=== PATIENT | female | born 1970 | race Caucasian/White ===

== ENCOUNTER 2018-11-14 16:12 | Emergency (ER) | payer SELFPAY ==
[~2018-11-14] VITALS: Ht 152.4 cm; Wt 63.5 kg
[~2018-11-14 16:12] MED LIST: AMBIEN5 MG PO; KEPPRA500 MG PO; LAMOTRIGINE100 MG PO; NORCO 7.5-3251 EACH PO; PROZAC40 MG PO; XANAX0.25 MG PO
--- OUTSIDE RECORDS SUMMARY | 2018-11-14 16:16 | XMS REPORT | Clinical Summary ---
Author Author [facility] Organization [facility] Address Unknown Phone Unavailable Care Team Providers Care Cosmetics Presser Name Role Phone Dacia George PCP Allergies Not on File Medications End Date Status Medication Sig Dispensed Refills Start Date Active lamoTRIgine (LAMICTAL) 25 Take 2 0 mg tablet tablets by 8 mouth 2 times daily. Active ALPRAZolam (XANAX) 1 mg TK / TO 1 T 5 tablet PO TID PRA 8 Active ibuprofen (MOTRIN) 400 mg Take 1 tablet 60 tablet 0 tabletIndications: Sprain by mouth 8 of left ankle, every 12 unspecified ligament, hours as initial encounter needed for Pain (take with food). Active Leg Brace (RAJ ANKLE by 1 Each 0 BRACE) MiscIndications: Misc.(Non-Chito 8 Sprain of left ankle, g; Combo unspecified ligament, Route) route initial encounter Ankle brace to help stabilize left ankle. Active ergocalciferol (VITAMIN Take 1 12 capsule 0 D2) 50,000 unit capsule by 8 capsuleIndications: mouth weekly. Fracture follow-up Active calcium (CALCIUM 500) 500 Take 1 tablet 60 tablet 1 mg calcium (1,250 mg) by mouth 2 8 tabletIndications: times daily. Fracture follow-up Active FLUoxetine (PROZAC) 20 mg Take 1 30 capsule 0 capsuleIndications: capsule by 9 Depression, unspecified mouth daily. depression type Active zolpidem (AMBIEN) 10 mg Take 1 tablet 30 tablet 0 TabIndications: by mouth 9 Depression, unspecified nightly at depression type bedtime as needed for Insomnia. 10/09/2018 Discontinued traZODone (DESYREL) 50 mg TAKE 1 TO 2 5 tablet TABLET PO QHS 7 10/09/2018 Discontinued zolpidem (AMBIEN) 10 mg TK 2 TS PO HS 5 Tab PRF INSOMNIA 8 Active Problems Problem Noted Date Fracture follow-up 03/19/2018 Follow up 02/04/2018 Closed nondisplaced fracture of lateral malleolus of left fibula 01/26/2018 Seizure 10/01/2017 Anxiety 10/01/2017 Resolved Problems Problem Noted Date Resolved Date Acute left ankle pain 01/23/2018 01/26/2018 Encounters Care Team Description Date Type Specialty Rafael Armas MD Depression, unspecified depression type (Primary Dx) 10/09/2018 Office Visit Psychiatry 10/09/2018 Travel Dacia George DO Chronic pain of left ankle 07/27/2018 Hospital Radiology Encounter Arjun Cornelius MD McAlister, Wade P, MD Closed nondisplaced fracture of lateral malleolus of left fibula with routine healing, subsequent encounter (Primary Dx); Chronic pain of left ankle 07/27/2018 Office Visit Orthopedics 07/27/2018 Travel Arjun Cornelius MD Martin, Stacey K, MD Fracture follow-up (Primary Dx) 05/18/2018 Office Visit Orthopedics Arjun Cornelius MD Fracture follow-up 05/18/2018 Hospital Radiology Encounter Arjun Cornelius MD McAlister, Wade P, MD Mascarenhas, Randhir F, MD Closed nondisplaced fracture of lateral malleolus of left fibula with delayed healing, subsequent encounter (Primary Dx); Fracture follow-up 03/23/2018 Office Visit OrthopedicDacia Mohan DO Fracture follow-up 03/23/2018 Hospital Radiology Encounter Arjun Cornelius MD Mascarenhas, Randhir F, MD Closed displaced fracture of lateral malleolus of left fibula with routine healing, subsequent encounter (Primary Dx) 02/09/2018 Office Visit OrthopedicDacia Mohan DO Follow up 02/09/2018 Hospital Radiology Encounter Arjun Cornelius MD Closed nondisplaced fracture of lateral malleolus of left fibula, initial encounter (Primary Dx) 01/26/2018 Office Visit Orthopedics Arjun Cornelius MD Acute left ankle pain 01/26/2018 Hospital Radiology Encounter Henrik Chiang MD 01/05/2018 Ancillary Radiology Procedure Dacia George DO Shah, Nihita, MD Sprain of left ankle, unspecified ligament, initial encounter (Primary Dx) 01/05/2018 Office Visit Family Practice Henrki Chiang MD Closed fracture of distal end of left fibula, unspecified fracture morphology, initial encounter (Primary Dx) 01/05/2018 Orders Only Family Practice Marah Castro RN 12/31/2017 Nurse Triage after 11/13/2017 Immunizations Name Dates Previously Given Next Due Influenza <Unspecified> 07/01/2017 Tdap (Tetanus Toxoid, 10/01/2017 (Deferred: Patient already had this Reduced Diphtheria Toxoid immunization - Patient states she received the And Acellular Pertussis, vaccine about 3 years ago ) Absorbed) Family History Medical History Relation Name Comments No Known Problems Maternal Grandfather Cancer Maternal Grandmother Heart Maternal Grandmother No Known Problems Paternal Grandfather No Known Problems Paternal Grandmother Relation Name Status Comments Father Alive Maternal Aunt Alive Maternal Grandfather Maternal Grandmother Mother Alive Paternal Grandfather Paternal Grandmother Paternal Uncle Alive Sister Alive Son Alive Social History Date Tobacco Use Types Packs/Day Years Used Never Smoker Smokeless Tobacco: Never Used Tobacco Cessation: Counseling Given: No Alcohol Use Drinks/Week oz/Week Comments Yes socially Sex Assigned at Date Recorded Not on file Industry Job Start Date Occupation Not on file Not on file Not on file Travel End Travel History Travel Start No recent travel history available. Last Filed Vital Signs Time Taken Vital Sign Reading 10/09/2018 10:47 AM PERSONAL CARE ASSISTANT Blood Pressure 130/82 10/09/2018 10:47 AM PERSONAL CARE ASSISTANT Pulse 98 10/09/2018 10:47 AM PERSONAL CARE ASSISTANT Temperature 36.6 C (97.9 F) 10/09/2018 10:47 AM PERSONAL CARE ASSISTANT Respiratory Rate 18 - Oxygen Saturation - - Inhaled Oxygen - Concentration 10/09/2018 10:47 AM PERSONAL CARE ASSISTANT Weight 65 kg (143 lb 6.4 oz) 10/09/2018 10:47 AM PERSONAL CARE ASSISTANT Height 152.4 cm (5') 10/09/2018 10:47 AM PERSONAL CARE ASSISTANT Body Mass Index 28.01 Plan of Treatment Health Maintenance Due Date Last Done Comments Cervical Cancer Scrn (3 1989 Yrs) Breast Cancer Scrn 2008 (Yearly) IMM Influenza Seasonal 05/25/2018 07/01/2017 Oct to October (>/=19 yrs) Colorectal Cancer Scrn 2018 Annual (FIT/FOBT) Age 50 to 75 Procedures Comments Procedure Name Priority Date/Time Associated Diagnosis XRAY ANKLE 3 VIEW MIN Routine 07/27/2018 Chronic pain of left 4:25 PM PERSONAL CARE ASSISTANT ankle XRAY ANKLE 3 VIEWS - Routine 05/18/2018 Fracture follow-up ROUTINE 12:33 PM CDT XRAY ANKLE 3 VIEW MIN Routine 03/23/2018 Fracture follow-up 11:17 AM CDT XRAY ANKLE 3 VIEWS - Routine 02/09/2018 Follow up ROUTINE 3:09 PM CDT XRAY TIBIA AND FIBULA 2 Routine 01/26/2018 Acute left ankle pain VIEWS 10:49 AM CDT XRAY ANKLE 3 VIEW MIN Routine 01/26/2018 Acute left ankle pain 10:49 AM CDT XRAY TIBIA AND FIBULA 2 STAT 01/05/2018 Sprain of left ankle, VIEWS 2:28 PM CDT unspecified ligament, initial encounter XRAY FOOT 3 VIEWS MIN STAT 01/05/2018 Sprain of left ankle, 2:28 PM CDT unspecified ligament, initial encounter XRAY ANKLE 3 VIEW MIN STAT 01/05/2018 Sprain of left ankle, 2:28 PM CDT unspecified ligament, initial encounter TSH Routine 11/28/2017 Preventative health care 3:59 PM CDT LIPID PROFILE Routine 11/28/2017 Preventative health care 3:59 PM CDT HEMOGLOBIN A1C Routine 11/28/2017 Preventative health care 3:59 PM CDT COMPREHENSIVE METABOLIC Routine 11/28/2017 Preventative health care PANEL(DBIL NOT INCLUDED) 3:59 PM CDT CBC/DIFF Routine 11/28/2017 Preventative health care 3:59 PM CDT after 11/13/2017 Results * XRAY ANKLE 3 VIEW MIN (07/27/2018 4:25 PM PERSONAL CARE ASSISTANT) Only the most recent of 4 results within the time period is included. Impressions Performed At IMPRESSION: SMS Further healing of the fracture of the distal fibula when compared with a study done on 05/18/2018 Signed By: Adonis Clements MD, 07/28/2018 7:48 AM Narrative Performed At EXAM: LEFT ANKLE 3 VIEWS [facility] DATE: 07/27/2018 4:21 PM INDICATION: fracture. Chronic pain of left ankle COMPARISON: 05/18/2018 TECHNIQUE: AP, OBLIQUE AND LATERAL VIEWS DISCUSSION: The fracture line involving the distal fibular metaphysis is somewhat less evident when compared with a study study done on 05/18/2018. This would indicate some interval healing. The fracture line however still identified without displacement of fractured segments. The ankle mortise is well maintained. Procedure Note Interface, Rad/Mammog In - 07/28/2018 7:53 AM PERSONAL CARE ASSISTANT EXAM: LEFT ANKLE 3 VIEWS DATE: 07/27/2018 4:21 PM INDICATION: fracture. Chronic pain of left ankle COMPARISON: 05/18/2018 TECHNIQUE: AP, OBLIQUE AND LATERAL VIEWS DISCUSSION: The fracture line involving the distal fibular metaphysis is somewhat less evident when compared with a study study done on 05/18/2018. This would indicate some interval healing. The fracture line however still identified without displacement of fractured segments. The ankle mortise is well maintained. IMPRESSION IMPRESSION: Further healing of the fracture of the distal fibula when compared with a study done on 05/18/2018 Signed By: Adonis Clements MD, 07/28/2018 7:48 AM Performing Organization Address City/State/Zipcode Phone Number SMS * XRAY ANKLE 3 VIEWS - ROUTINE (05/18/2018 12:33 PM CDT) Only the most recent of 2 results within the time period is included. Impressions Performed At IMPRESSION:Continued healing and remodeling at the minimally displaced SMS left distal fibular fracture. No new findings Signed By: Sanhdya Hicks MD, 05/18/2018 3:20 PM Narrative Performed At EXAM: XR LEFT ANKLE 3 VIEWS [facility] DATE:05/18/2018 12:34 PM INDICATION: fracture. Fracture follow-up COMPARISON: 02/09/2018 TECHNIQUE:AP, lateral and oblique ankle radiographs DISCUSSION: There has been continued interim healing and remodeling at the Posada B left distal fibular fracture, with the fracture lines remaining evident. The ankle mortise is congruent. Tibiotalar osteophyte formation is most evident anteriorly. No new or superimposed bony abnormality is identified. No soft tissue abnormality is identified. Procedure Note Mario Oconnor/Umuog In - 05/18/2018 3:26 PM CDT EXAM: XR LEFT ANKLE 3 VIEWS DATE: 05/18/2018 12:34 PM INDICATION: fracture. Fracture follow-up COMPARISON: 02/09/2018 TECHNIQUE: AP, lateral and oblique ankle radiographs DISCUSSION: There has been continued interim healing and remodeling at the Posada B left distal fibular fracture, with the fracture lines remaining evident. The ankle mortise is congruent. Tibiotalar osteophyte formation is most evident anteriorly. No new or superimposed bony abnormality is identified. No soft tissue abnormality is identified. IMPRESSION IMPRESSION: Continued healing and remodeling at the minimally displaced left distal fibular fracture. No new findings Signed By: Sandhya Hicks MD, 05/18/2018 3:20 PM Performing Organization Address City/State/Zipcout Phone Number SMS * XRAY TIBIA AND FIBULA 2 VIEWS (01/26/2018 10:49 AM CDT) Only the most recent of 2 results within the time period is included. Impressions Performed At IMPRESSION: SMS Maintained alignment of Posdaa B medial malleolar fracture within the splint. Signed By: Adriel Mares MD, 01/26/2018 12:51 PM Narrative Performed At EXAM: XR LEFT TIBIA-FIBULA 2 VIEWS SMS EXAM: XR LEFT ANKLE 3 VIEWS DATE: 01/26/2018 10:49 AM INDICATION: PAIN COMPARISON: Radiographs dated 01/05/2018. TECHNIQUE: 2 views of the tibia-fibula, 3 views of the ankle FINDINGS: Tibia-fibula: No acute fracture or malalignment is identified. Remote appearing small bone fragment along the medial tibial spike. No soft tissue abnormality is identified. Ankle: Maintained alignment of Posada B lateral malleolus fracture, seen within the splint. No significant callus formation identified. The ankle mortise is congruent. Mild soft tissue swelling Procedure Note Mario Oconnor/Umuog In - 01/26/2018 12:56 PM CDT EXAM: XR LEFT TIBIA-FIBULA 2 VIEWS EXAM: XR LEFT ANKLE 3 VIEWS DATE: 01/26/2018 10:49 AM INDICATION: PAIN COMPARISON: Radiographs dated 01/05/2018. TECHNIQUE: 2 views of the tibia-fibula, 3 views of the ankle FINDINGS: Tibia-fibula: No acute fracture or malalignment is identified. Remote appearing small bone fragment along the medial tibial spike. No soft tissue abnormality is identified. Ankle: Maintained alignment of Posada B lateral malleolus fracture, seen within the splint. No significant callus formation identified. The ankle mortise is congruent. Mild soft tissue swelling IMPRESSION IMPRESSION: Maintained alignment of Posada B medial malleolar fracture within the splint. Signed By: Adriel Mares MD, 01/26/2018 12:51 PM Performing Organization Address City/State/Zipcode Phone Number SMS * XRAY FOOT 3 VIEWS MIN (01/05/2018 2:28 PM CDT) Impressions Performed At IMPRESSION: SMS 1.Acute obliquely oriented fracture through the distal fibula with extension through the distal tibial/fibular joint. 2.Ankle mortise is intact. 3.Age-indeterminate fracture of the medial intercondylar eminence. Lack of associated fluid suggests nonacute injury. 4. Moderate soft tissue swelling about the ankle Dictated By: Woody Moreira MD, 01/05/2018 2:48 PM I have reviewed the study and agree with the findings in this report. Signed By: Irving Loja DO, 01/05/2018 4:10 PM Narrative Performed At EXAM: Left ankle, tibia/fibula and foot series [facility] TECHNIQUE: AP, Lateral and Oblique views of the ankle and foot. AP and lateral views of the tibia/fibula (8 total images provided) HISTORY:left ankle sprain and swelling 3 days ago - twisting injury, has old h/o fracture in the foot 3 yrs ago COMPARISON: None DISCUSSION: Acute obliquely oriented fracture through the distal fibula with extension through the lateral malleolus and likely the tibiotalar joint. No widening of the medial or lateral clear space. Fragmentation of the medial intercondylar eminence without significant swelling. Os peroneum. The remaining osseous structures of the foot are intact The remaining joint spaces are well maintained without osseous erosion. Mild soft tissue swelling about the ankle Procedure Note Interface, Rad/Mammog In - 01/05/2018 4:15 PM CDT EXAM: Left ankle, tibia/fibula and foot series TECHNIQUE: AP, Lateral and Oblique views of the ankle and foot. AP and lateral views of the tibia/fibula (8 total images provided) HISTORY: left ankle sprain and swelling 3 days ago - twisting injury, has old h/o fracture in the foot 3 yrs ago COMPARISON: None DISCUSSION: Acute obliquely oriented fracture through the distal fibula with extension through the lateral malleolus and likely the tibiotalar joint. No widening of the medial or lateral clear space. Fragmentation of the medial intercondylar eminence without significant swelling. Os peroneum. The remaining osseous structures of the foot are intact The remaining joint spaces are well maintained without osseous erosion. Mild soft tissue swelling about the ankle IMPRESSION IMPRESSION: 1. Acute obliquely oriented fracture through the distal fibula with extension through the distal tibial/fibular joint. 2. Ankle mortise is intact. 3. Age-indeterminate fracture of the medial intercondylar eminence. Lack of associated fluid suggests nonacute injury. 4. Moderate soft tissue swelling about the ankle Dictated By: Woody Moreira MD, 01/05/2018 2:48 PM I have reviewed the study and agree with the findings in this report. Signed By: Irving Loja DO, 01/05/2018 4:10 PM Performing Organization Address City/State/Zipcode Phone Number SMS * HEMOGLOBIN A1C (11/28/2017 3:59 PM CDT) Hemoglobin A1c 5.4 4.3 - 6.1 % BT DIAGNOSTIC IMMUNOLOGY Est Average 108.3 mg/dL BT DIAGNOSTIC Gluc IMMUNOLOGY Specimen Blood Performing Organization Address [facility]/Zipcode Phone Number MISYS BT DIAGNOSTIC IMMUNOLOGY * COMPREHENSIVE METABOLIC PANEL(DBIL NOT INCLUDED) (11/28/2017 3:59 PM CDT) Albumin 4.1 3.7 - 5.3 g/dL BT [facility]IN[facility]ST[facility] 4 Calcium 9.2 8.6 - 10.3 mg/dL [facility] 4 CO2 28 21 - 31 mmol/L BT [facility] 4 Chloride 103 98 - 107 mmol/L BT [facility] 4 Creatinine 0.70 0.6 - 1.2 mg/dL BT [facility] 4 Glucose 98 70 - 110 mg/dL BT [facility] 4 Alk Phos 95 34 - 104 U/L BT [facility] 4 Potassium 3.9 3.5 - 5.1 mmol/L BT [facility] 4 Sodium 141 136 - 145 mmol/L BT [facility] 4 ALT 41 7 - 52 U/L BT [facility] 4 AST 38 13 - 39 U/L BT [facility] 4 Urea Nitrogen 4 (L) 7 - 25 mg/dL [facility] 4 T Bilirubin 0.6 0.2 - 1.2 mg/dL BT [facility] 4 T Protein 8.0 6.0 - 8.3 g/dL BT [facility] 4 GFR, Estimated >60 mL/min/1.73 m2 BT [facility] 4 GFR, Estim, >60 mL/min/1.73 m2 BT [facility] Afr-Am 4 Anion Gap 10 BT [facility]ATION 4 Specimen Blood Performing Organization Address [facility] Phone Number MISYS BT MAIN-STATION 4 * TSH (11/28/2017 3:59 PM CDT) TSH 1.47 0.45 - 5.33 uIU/mL BT OUTPATIENT DRAW 2 Specimen Blood Performing Organization Address [facility] Phone Number MIS[facility] BT OUTPATIENT DRAW 2 * LIPID PROFILE (11/28/2017 3:59 PM CDT) Cholesterol 202 mg/dL [facility] Comment: 4 REFERENCE RANGE: Desirable: <200 mg/dL Borderline: 200-240 mg/dL High Risk: >240 mg/dL Triglyceride 69 <150 mg/dL BT [facility] Comment: 4 REFERENCE RANGE: Normal: <150 mg/dL Borderline High: 150-199 mg/dL High: 200-499 mg/dL Very High: >uk=984 mg/dL HDL 98 mg/dL BT [facility] Comment: 4 Increased CHD risk: <40 mg/dL Decreased CHD risk: >60 mg/dL LDL 90 mg/dL BT [facility] Comment: 4 REFERENCE RANGE: Optimal: <100 mg/dL Near Optimal: 100-129 mg/dL Borderline High: 130-159 mg/dL High: 160-189 mg/dL Very High: >rh=808 mg/dL Specimen Blood Performing Organization Address [facility] Phone Number MISYS BT MAIN-ST[facility] 4 * CBC/DIFF (11/28/2017 3:59 PM CDT) WBC 4.7 4.5 - 11.0 K/uL BT [facility] 2 RBC 4.45 4.20 - 5.40 M/uL BT [facility] 2 Hemoglobin 12.9 12.0 - 16.0 g/dL BT [facility] 2 Hematocrit 41.2 37.0 - 47.0 % BT [facility] 2 MCV 93 (H) 82 - 92 fL BT [facility] 2 MCH 29.0 27.0 - 32.0 pg BT [facility] 2 MCHC 31.3 (L) 32.0 - 36.0 g/dL BT [facility] 2 RDW 50.6 (H) 36.4 - 46.3 fL BT [facility] 2 Platelet 216 150 - 400 K/uL BT [facility] 2 Mean Platelet 10.9 9.4 - 12.4 fL BT [facility] Volume 2 Percent NRBC 0.0 BT [facility] 2 Absolute NRBC 0.00 BT [facility] 2 Neutrophil 57.7 34.0 - 70.0 % BT [facility] 2 Lymphocyte 30.2 20.0 - 50.0 % BT [facility] 2 Monocyte 9.8 5.0 - 12.0 % BT [facility] 2 Eosinophil 1.5 0.7 - 5.0 % BT [facility] 2 Basophil 0.6 0.1 - 1.2 % BT [facility] 2 Pct Immat Gran 0.2 0.0 - 0.5 BT MAIN-[facility]ATION 2 Neutrophil, Abs 2.71 1.56 - 6.13 K/uL BT MAIN[facility]ATION 2 Lymphocyte, Abs 1.42 1.18 - 3.74 K/uL BT MA[facility] 2 Monocyte, Abs 0.46 (H) 0.24 - 0.36 K/uL BT MAIN-STATION 2 Eosinophil, Abs 0.07 0.04 - 0.36 K/uL BT MAIN[facility] 2 Basophil, Abs 0.03 0.01 - 0.08 K/uL BT [facility] 2 Absol Immat 0.01 0.00 - 0.03 K/uL BT MAIN[facility]ATION Gran 2 Specimen Blood Performing Organization Address City/State/Zipcode Phone Number MISYS BT [facility] 2 after 11/13/2017 Insurance Type Payer Benefit Subscriber ID Effective Phone Address Plan / Dates Group [employer] PLAN H[employer] PLAN xxxxxxx 2017- [phone] [id number] [id number] [place] [address]
--- OUTSIDE RECORDS SUMMARY | 2018-11-14 16:16 | XMS REPORT ---
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 DAVIS 3, severe cervical dysplasia 233.1 Active Nikki Nguyen MD Carcinoma in situ of cervix uteri Abfnd Pap smear HPV DNA 079.4 Active Nikki Nguyen MD Human papillomavirus infection in conditions classified elsewhere and of unspecified site Followup of lab tests V67.9 Active Nikki Nguyen MD Unspecified follow-up examination Well woman exam V72.3 Active Orlando Finch MD Special investigations and examinations - Gynecological examination Vaccination Against Influenza V04.81 Inactive Orlando Finch MD Need for prophylactic vaccination and inoculation against influenza Vaccination Against Influenza ICD-V04.81 Inactive Orlando Finch MD Medication List Medication Instructions Start Date Stop Date Generic Name NDC Status Provider Patient Instruction No Drug Therapy Prescribed - none known did ask Orlando Finch MD Immunizations Vaccine Administration Date Value Standard Description influenza immunization (Flu Vax) has been administered given influenza virus vaccine, unspecified formulation Vital Signs Date Name Value Unit Range Description blood pressure, diastolic, second observation 91 mm[Hg] BP south blood pressure, diastolic 89 mm[Hg] BP south blood pressure, systolic, second observation 141 mm[Hg] BP sys blood pressure, systolic 147 mm[Hg] BP sys height E&M 60 [in_us] Bdy height pulse rate E&M 128 /min Heart rate respiratory rate E&M 18 /min Resp rate temperature E&M 98.1 [degF] Body temperature blood pressure, diastolic 84 mm[Hg] BP south blood pressure, systolic 124 mm[Hg] BP sys height E&M 60 [in_us] Bdy height pulse rate E&M 88 /min Heart rate respiratory rate E&M 16 /min Resp rate temperature E&M 98.1 [degF] Body temperature weight E&M 136.13 [lb_av] Weight Measured blood pressure, diastolic 80 mm[Hg] BP south blood pressure, systolic 110 mm[Hg] BP sys height E&M 60 [in_us] Bdy height pulse rate E&M 89 /min Heart rate respiratory rate E&M 16 /min Resp rate temperature E&M 98.2 [degF] Body temperature weight E&M 140.25 [lb_av] Weight Measured blood pressure, diastolic 70 mm[Hg] BP south blood pressure, systolic 97 mm[Hg] BP sys height E&M 60 [in_us] Bdy height pulse rate E&M 75 /min Heart rate temperature E&M 98.0 [degF] Body temperature weight E&M 141.38 [lb_av] Weight Measured blood pressure, diastolic 87 mm[Hg] BP south blood pressure, systolic 131 mm[Hg] BP sys height E&M 60 [in_us] Bdy height pulse rate E&M 98 /min Heart rate respiratory rate E&M 18 /min Resp rate temperature E&M 98.4 [degF] Body temperature weight E&M 139.40 [lb_av] Weight Measured Diagnostic Results Date Name Value Unit Range Description Lab Report: CBC With Differential/Platelet, Comp. Metabolic Panel (14), ... - Urinalysis pH, urine, semiquantitative 6.5 5.0-7.5 Lab Report: CBC With Differential/Platelet, Comp. Metabolic Panel (14), ... - Hematology lymphocyte count, blood, automated 2.1 X10E3/UL 10*3/mm3 0.7-3.1 Lab Report: CBC With Differential/Platelet, Comp. Metabolic Panel (14), ... - Urinalysis bilirubin, urine Negative Negative Lab Report: CBC With Differential/Platelet, Comp. Metabolic Panel (14), ... - Chemistry urea nitrogen, blood 7 mg/dL 6-24 creatinine, serum 0.92 mg/dL 0.57-1.00 chloride, serum 102 mmol/L 96-106 Lab Report: CBC With Differential/Platelet, Comp. Metabolic Panel (14), ... - Hematology mean corpuscular volume, RBC 87 fL 79-97 Lab Report: CBC With Differential/Platelet, Comp. Metabolic Panel (14), ... - Chemistry triglyceride, serum, fasting 79 mg/dL 0-149 Lab Report: CBC With Differential/Platelet, Comp. Metabolic Panel (14), ... - Hematology erythrocyte (RBC) count 4.56 X10E6/UL 10*6/mm3 3.77-5.28 Lab Report: CBC With Differential/Platelet, Comp. Metabolic Panel (14), ... - Chemistry Estimated Glomerular Filtration Rate (calc) 74 mL/min/1.73m2 >59 Lab Report: CBC With Differential/Platelet, Comp. Metabolic Panel (14), ... - Urinalysis appearance, urine Clear Clear Lab Report: CBC With Differential/Platelet, Comp. Metabolic Panel (14), ... - Hematology platelet count 180 X10E3/UL 10*3/mm3 982-255 7481/11/06 red blood cell distribution width 17.0 % 12.3-15.4 Lab Report: CBC With Differential/Platelet, Comp. Metabolic Panel (14), ... - Chemistry protein, total, serum 6.7 g/dL 6.0-8.5 HDL cholesterol, serum 97 mg/dL >39 specific gravity, body fluid 1.011 1.005-1.030 albumin/globulin ratio, serum 1.8 1.2-2.2 Lab Report: CBC With Differential/Platelet, Comp. Metabolic Panel (14), ... - Hematology eosinophils as percent of blood leukocytes 4 % Not Estab. Lab Report: CBC With Differential/Platelet, Comp. Metabolic Panel (14), ... - Urinalysis glucose, urine, semiquantitative Negative Negative Lab Report: CBC With Differential/Platelet, Comp. Metabolic Panel (14), ... - Chemistry Absolute Neutrophils 1.8 X10E3/UL 10*3/uL 1.4-7.0 Lab Report: CBC With Differential/Platelet, Comp. Metabolic Panel (14), ... - Hematology basophil count, absolute 0.0 x10E3/uL 0.0-0.2 Lab Report: CBC With Differential/Platelet, Comp. Metabolic Panel (14), ... - Chemistry alanine aminotransferase (SGPT), serum 13 U/L 0-32 LDL cholesterol, serum 125 mg/dL 0-99 Lab Report: CBC With Differential/Platelet, Comp. Metabolic Panel (14), ... - Hematology monocytes as percent of blood leukocytes 10 % Not Estab. Lab Report: CBC With Differential/Platelet, Comp. Metabolic Panel (14), ... - Chemistry cholesterol, serum 238 mg/dL 100-199 Lab Report: CBC With Differential/Platelet, Comp. Metabolic Panel (14), ... - Basic Occult Blood, urine Negative Negative Lab Report: CBC With Differential/Platelet, Comp. Metabolic Panel (14), ... - Hematology mean corpuscular hemoglobin concentration, RBC 32.7 G/DL % 31.5-35.7 Lab Report: CBC With Differential/Platelet, Comp. Metabolic Panel (14), ... - Urinalysis leukocyte esterase, urine, by dipstick Negative Negative Lab Report: CBC With Differential/Platelet, Comp. Metabolic Panel (14), ... - Hematology hemoglobin, blood 13.0 g/dL 11.1-15.9 Lab Report: CBC With Differential/Platelet, Comp. Metabolic Panel (14), ... - Urinalysis urinalysis, microscopic examination MICNIP Lab Report: CBC With Differential/Platelet, Comp. Metabolic Panel (14), ... - Hematology leukocyte count, blood 4.5 X10E3/UL 10*3/mm3 3.4-10.8 Lab Report: CBC With Differential/Platelet, Comp. Metabolic Panel (14), ... - Urinalysis protein, urine, semiquantitative (dipstick) Negative Negative/Trace Lab Report: CBC With Differential/Platelet, Comp. Metabolic Panel (14), ... - Hematology hematocrit, blood 39.8 % 34.0-46.6 Lab Report: CBC With Differential/Platelet, Comp. Metabolic Panel (14), ... - Chemistry globulin, serum 2.4 1.5-4.5 albumin, serum 4.3 g/dL 3.5-5.5 very low density lipoproteins 16 mg/dL 5-40 Lab Report: CBC With Differential/Platelet, Comp. Metabolic Panel (14), ... - Urinalysis urobilinogen, urine, semiquantitative (dipstick) 1.0 0.2-1.0 Lab Report: CBC With Differential/Platelet, Comp. Metabolic Panel (14), ... - Chemistry calcium, serum 9.5 mg/dL 8.7-10.2 Lab Report: CBC With Differential/Platelet, Comp. Metabolic Panel (14), ... - Hematology basophils as percent of blood leukocytes 0 % Not Estab. monocyte count, blood, automated 0.4 X10E3/UL 10*3/uL 0.1-0.9 Lab Report: CBC With Differential/Platelet, Comp. Metabolic Panel (14), ... - Chemistry immature granulocytes, percentage of total cells, blood 0 % Not Estab. urea nitrogen/creatinine ratio, serum 8 9-23 Lab Report: CBC With Differential/Platelet, Comp. Metabolic Panel (14), ... - Genetics/fertility eGFR if 85 mL/min/1.73m2 >59 Lab Report: CBC With Differential/Platelet, Comp. Metabolic Panel (14), ... - Hematology lymphocytes as percent of blood leukocytes 46 % Not Estab. Lab Report: CBC With Differential/Platelet, Comp. Metabolic Panel (14), ... - Chemistry carbon dioxide, venous blood 25 mmol/L 18-29 sodium, serum 142 mmol/L 488-359 5543/11/06 alkaline phosphatase, serum 85 U/L 39-117 Lab Report: CBC With Differential/Platelet, Comp. Metabolic Panel (14), ... - Urinalysis ketones, urine, by test strip Negative Negative Lab Report: CBC With Differential/Platelet, Comp. Metabolic Panel (14), ... - Hematology Eosinophil Absolute Count 0.2 X10E3/UL 10*3/uL 0.0-0.4 mean corpuscular hemoglobin, RBC 28.5 pg 26.6-33.0 Lab Report: CBC With Differential/Platelet, Comp. Metabolic Panel (14), ... - Chemistry bilirubin, serum, total 0.3 mg/dL 0.0-1.2 Lab Report: CBC With Differential/Platelet, Comp. Metabolic Panel (14), ... - Hematology neutrophils as percent of blood leukocytes 40 % Not Estab. Lab Report: CBC With Differential/Platelet, Comp. Metabolic Panel (14), ... - Chemistry nitrate, urine Negative Negative blood glucose, random 92 mg/dL 65-99 potassium, serum 5.3 mmol/L 3.5-5.2 aspartate aminotransferase (SGOT), serum 19 U/L 0-40 Lab Report: CBC With Differential/Platelet, Comp. Metabolic Panel (14), ... - Urinalysis urine color Yellow Yellow Encounters Date Encounter Provider Code Facility 15:47:47 CDT Est Patient Exp Problem - 71198 Orlando Finch MD [id number] [facility] 09:24:22 [employer] Est Patient Problem Focus - 25210 Nikki Nguyen MD CPT-[id number] [facility] 09:23:56 [employer] Est Patient Problem Focus - 28706 Nikki Nguyen MD CPT-[id number] [facility] 09:18:30 [employer] Est Patient Problem Focus - 33901 Nikki Nguyen MD CPT-[id number] [facility] Procedures Code Procedure Name Date Entry Date Standard Description CPT-40998 Colposcopy w/o Biopsy 09:23:56 [employer] CPT-19066 New Patient Well Exam (40 - 64 Yrs) - 44032 14:53:30 CDT
--- OUTSIDE RECORDS SUMMARY | 2018-11-14 16:16 | XMS REPORT ---
Author Author [facility] Address Unknown Phone Unavailable Care Team Providers Care Field Servicer Name Role Phone Unavailable Unavailable Problems This patient has no known problems. Allergies, Adverse Reactions, Alerts This patient has no known allergies or adverse reactions. Medications This patient has no known medications. Encounters Start Date/Time End Date/Time Encounter Type Admission Type Attending [facility] Care Department Encounter ID 2018-11-06 00:00:00 2018-11-06 00:00:00 Outpatient [facility] [id number] 2018-10-09 10:45:42 2018-10-09 10:45:42 Outpatient [facility] [id number] 2018-10-01 00:00:00 2018-10-01 00:00:00 Outpatient [facility] [id number] 2018-09-30 00:00:00 2018-09-30 00:00:00 Outpatient [facility] [id number] 2018-09-08 00:00:00 2018-09-08 00:00:00 Outpatient [facility] [id number] 2018-09-07 00:00:00 2018-09-07 00:00:00 Outpatient [facility] [id number] 2018-08-11 00:00:00 2018-08-11 00:00:00 Outpatient [facility] [id number] 2018-08-06 00:00:00 2018-08-06 00:00:00 Outpatient [facility] [id number] 2018-07-30 00:00:00 2018-07-30 00:00:00 Outpatient [facility] [id number] 2018-07-27 16:16:57 2018-07-27 16:16:57 Outpatient [facility] [id number] 2018-07-27 15:58:17 2018-07-27 15:58:17 Outpatient [facility] [id number] 2018-07-07 00:00:00 2018-07-07 00:00:00 Outpatient [facility] [id number] 2018-06-12 00:00:00 2018-06-12 00:00:00 Outpatient [facility] [id number] 2018-05-26 00:00:00 2018-05-26 00:00:00 Outpatient [facility] [id number] 2018-05-22 00:00:00 2018-05-22 00:00:00 Outpatient [facility] [id number] 2018-05-18 12:28:11 2018-05-18 12:28:11 Outpatient [facility] [id number] 2018-05-18 12:26:35 2018-05-18 12:26:35 Outpatient [facility] [id number] 2018-05-04 00:00:00 2018-05-04 00:00:00 Outpatient [facility] [id number] 2018-05-04 00:00:00 2018-05-04 00:00:00 Outpatient [facility] [id number] 2018-03-27 00:00:00 2018-03-27 00:00:00 Outpatient [facility] [id number] 2018-03-23 11:01:27 2018-03-23 11:01:27 Outpatient [facility] [id number] 2018-03-23 10:39:23 2018-03-23 10:39:23 Outpatient [facility] [id number] 2018-02-09 15:01:10 2018-02-09 15:01:10 Outpatient [facility] [id number] 2018-02-09 14:33:39 2018-02-09 14:33:39 Outpatient [facility] [id number] 2018-02-09 00:00:00 2018-02-09 00:00:00 Outpatient [facility] [id number] 2018-01-26 10:25:03 2018-01-26 10:25:03 Outpatient [facility] [id number] 2018-01-26 10:22:24 2018-01-26 10:22:24 Outpatient [facility] [id number] 2018-01-12 00:00:00 2018-01-12 00:00:00 Outpatient [facility] [id number] 2018-01-05 14:08:58 2018-01-05 14:08:58 Outpatient [facility] [id number] 2018-01-05 13:11:50 2018-01-05 13:11:50 Outpatient [facility] [id number] 2018-01-01 00:00:00 2018-01-01 00:00:00 Outpatient [facility] [id number] 2017-12-04 00:00:00 2017-12-04 00:00:00 Outpatient [facility] [id number] 2017-11-28 16:03:09 2017-11-28 16:03:09 Outpatient [facility] [id number] 2017-11-24 00:00:00 2017-11-24 00:00:00 Outpatient [facility] [id number] 2017-11-17 00:00:00 2017-11-17 00:00:00 Outpatient [facility] [id number] 2017-11-17 00:00:00 2017-11-17 00:00:00 Outpatient [facility] [id number] 2017-11-17 00:00:00 2017-11-17 00:00:00 Outpatient [facility] [id number] 2017-11-11 00:00:00 2017-11-11 00:00:00 Outpatient [facility] [id number] 2017-11-10 00:00:00 2017-11-10 00:00:00 Outpatient [facility] [id number] 2017-11-05 00:00:00 2017-11-05 00:00:00 Outpatient [facility] [id number] 2017-10-30 00:00:00 2017-10-30 00:00:00 Outpatient [facility] [id number] 2017-10-29 00:00:00 2017-10-29 00:00:00 Outpatient [facility] [id number] 2017-10-22 00:00:00 2017-10-22 00:00:00 Outpatient [facility] [id number] 2017-10-20 00:00:00 2017-10-20 00:00:00 Outpatient [facility] [id number] 2017-10-10 00:00:00 2017-10-10 00:00:00 Outpatient [facility] [id number] 2017-10-09 00:00:00 2017-10-09 00:00:00 Outpatient [facility] [id number] 2017-10-09 00:00:00 2017-10-09 00:00:00 Outpatient [facility] [id number] 2017-10-08 00:00:00 2017-10-08 00:00:00 Outpatient [facility] [id number] 2017-10-06 00:00:00 2017-10-06 00:00:00 Outpatient [facility] [id number] 2017-10-02 00:00:00 2017-10-02 00:00:00 Outpatient [facility] [id number] 2017-10-01 13:06:07 2017-10-01 13:06:07 Outpatient [facility] [id number] 2017-01-10 00:00:00 2017-01-10 00:00:00 Outpatient [facility] [id number]
[2018-11-14 17:37] LABS: BASOPHILS % 0.5 % (0.0-1.0); EOSINOPHILS # (AUTO) 0.1 (0.0-0.4); EOSINOPHILS % 1.4 % (0.0-6.0); HEMATOCRIT 45.1 % (34.2-44.1); HEMOGLOBIN 14.6 g/dL (12.0-16.0); LYMPHOCYTES # (AUTO) 0.6 (1.0-3.2); LYMPHOCYTES % 13.2 % (18.0-39.1); MEAN CORPUSCULAR HEMOGLOBIN 29.6 pg (28-32); MEAN CORPUSCULAR HGB CONC 32.4 g/dL (31-35); MEAN CORPUSCULAR VOLUME 91.3 fL (81-99); MONOCYTES # (AUTO) 0.3 (0.2-0.8); MONOCYTES % 5.9 % (4.4-11.3); NEUTROPHILS # (AUTO) 3.5 (2.1-6.9); NEUTROPHILS % 78.5 % (38.7-80.0); PLATELET COUNT 227 x10e3/uL (140-360); RED BLOOD COUNT 4.94 x10e6/uL (3.6-5.1)
[2018-11-14 17:51] LABS: ALANINE AMINOTRANSFERASE 22 IU/L (0-55); ALBUMIN 3.4 g/dL (3.5-5.0); ALBUMIN/GLOBULIN RATIO 0.9 (0.8-2.0); ALKALINE PHOSPHATASE 129 IU/L (40-150); ANION GAP 17.2 mmol/L (8-16); BLOOD UREA NITROGEN < 5 mg/dL (7-26); CALCIUM 9.4 mg/dL (8.4-10.2); CARBON DIOXIDE 25 mmol/L (22-29); CHLORIDE 100 mmol/L (98-107); CREATININE, SERUM 0.81 mg/dL (0.57-1.11); EST GLOMERULAR FILTRATION RATE > 60 ML/MIN (60-); GLUCOSE 128 mg/dL (74-118); POTASSIUM 3.2 mmol/L (3.5-5.1); SODIUM 139 mmol/L (136-145)
[2018-11-14 17:53] LABS: BUN/CREATININE RATIO 6 (6-25)
[2018-11-14] MEDS ORDERED: IBUPROFEN 600 MG TAB PO STA (18:44)
[2018-11-14] MEDS ORDERED: IBUPROFEN 400 MG TAB PO ONE (19:00)
[2018-11-14 19:01] LABS: CLARITY,URINE CLOUDY (CLEAR); COLOR,URINE YELLOW (YELLOW); LEUKOCYTE ESTERASE ,URINE 1+ (NEGATIVE); NITRITE,URINE POSITIVE (NEGATIVE)
[2018-11-14 19:02] LABS: BILIRUBIN,URINE NEGATIVE (NEGATIVE); KETONES,URINE NEGATIVE (NEGATIVE); PREGNANCY TEST, URINE NEGATIVE (NEGATIVE); PROTEIN,URINE DIPSTICK TRACE (NEGATIVE); URINE UROBILINOGEN 0.2 mg/dL (0.2 - 1)
[2018-11-14 19:03] LABS: AMPHETAMINES SCREEN,URINE NEGATIVE (NEGATIVE); BENZODIAZEPINES SCREEN,URINE NEGATIVE (NEGATIVE); PHENCYCLIDINE SCREEN,URINE NEGATIVE (NEGATIVE)
[2018-11-14 19:18] LABS: BACTERIA,URINE MANY /HPF; EPITHELIAL CELLS,URINE MODERATE /LPF; RBC,URINE 0-5 /HPF (0-5)
[2018-11-14] MEDS ORDERED: CEFTRIAXONE SOD 1 GM/NS 50 ML 50 ML IV ONE (19:30)
[2018-11-14] MEDS ORDERED: POTASSIUM CHLORIDE 20 MEQ TAB CR PO ONE (19:45)
== END 2018-11-14 20:51 | disposition home or self-care (01) ==
LOC: ER 16:12
DX: G40.309 Generalized idiopathic epilepsy and epileptic syndromes, not intractable, without status epilepticus (principal); N30.90 Cystitis, unspecified without hematuria
CPT/HCPCS: 36415; 80053; 80307; 80320; 81001; 81025; 85025; 99284; J0696

== ENCOUNTER 2022-12-16 11:29 | Emergency (ER) | payer SELFPAY ==
[~2022-12-16] VITALS: Ht 152.4 cm; Wt 63.5 kg
[2022-12-16] MEDS ORDERED: ONDANSETRON HCL INJ 2MG/ML 2ML 2 MG/ML VIAL IV PRN ×2 (12:15→15:15)
[2022-12-16] MEDS ORDERED: SODIUM CHLORIDE 0.9% 1000ML 1,000 ML IV ONE ×2 (12:15→13:15)
[2022-12-16 12:34] LABS: BASOPHILS # (AUTO) 0.1 (0.0-0.1); BASOPHILS % 1.2 % (0.0-1.0); EOSINOPHILS % 0.4 % (0.0-6.0); HEMATOCRIT 35.4 % (34.2-44.1); LYMPHOCYTES # (AUTO) 0.9 (1.0-3.2); LYMPHOCYTES % 12.6 % (18.0-39.1); MEAN CORPUSCULAR HEMOGLOBIN 33.1 pg (28-32); MEAN CORPUSCULAR HGB CONC 33.9 g/dL (31-35); MEAN CORPUSCULAR VOLUME 97.8 fL (81-99); MONOCYTES # (AUTO) 0.4 (0.2-0.8); MONOCYTES % 6.2 % (4.4-11.3); NEUTROPHILS # (AUTO) 5.3 (2.1-6.9); NEUTROPHILS % 78.1 % (38.7-80.0); PLATELET COUNT 205 x10e3/uL (140-360); RED BLOOD COUNT 3.62 x10e6/uL (3.6-5.1); RED CELL DISTRIBUTION WIDTH 15.4 % (11.7-14.4)
[2022-12-16 12:46] LABS: ALBUMIN 2.5 g/dL (3.5-5.0); ALBUMIN/GLOBULIN RATIO 0.5 (0.8-2.0); ANION GAP 23.2 mmol/L (8-16); CALCIUM 9.5 mg/dL (8.4-10.2); CREATININE, SERUM 0.69 mg/dL (0.57-1.11); POTASSIUM 3.2 mmol/L (3.5-5.1)
[2022-12-16 12:57] LABS: LIPASE 52 U/L (8-78)
[2022-12-16] MEDS ORDERED: IOPAMIDOL 370 MG/ML 100 ML INFUS..BTL INJ ONE (13:28)
[2022-12-16] MEDS ORDERED: SODIUM CHLORIDE 0.9% 1000ML 1,000 ML IV SCH (15:15)
== END 2022-12-16 17:08 | disposition other institution (70) ==
LOC: ER 11:43
DX: R11.2 Nausea with vomiting, unspecified (principal); K52.9 Noninfective gastroenteritis and colitis, unspecified; E80.6 Other disorders of bilirubin metabolism; R53.1 Weakness; R42 Dizziness and giddiness
CPT/HCPCS: 36415; 74177; 80053; 83690; 84484; 85025; 99284; J2405; J7030; Q9967

== ENCOUNTER 2023-01-15 09:25 | Emergency (ER) | payer SELFPAY ==
[~2023-01-15] VITALS: Ht 152.4 cm; Wt 63.5 kg
[2023-01-15 09:55] LABS: BASOPHILS # (AUTO) 0.1 (0.0-0.1); BASOPHILS % 1.2 % (0.0-1.0); EOSINOPHILS # (AUTO) 0.2 (0.0-0.4); EOSINOPHILS % 3.3 % (0.0-6.0); HEMATOCRIT 37.5 % (34.2-44.1); HEMOGLOBIN 12.1 g/dL (12.0-16.0); LYMPHOCYTES # (AUTO) 1.6 (1.0-3.2); MEAN CORPUSCULAR HEMOGLOBIN 30.7 pg (28-32); MEAN CORPUSCULAR HGB CONC 32.3 g/dL (31-35); MEAN CORPUSCULAR VOLUME 95.2 fL (81-99); MONOCYTES # (AUTO) 0.5 (0.2-0.8); MONOCYTES % 10.2 % (4.4-11.3); NEUTROPHILS # (AUTO) 2.8 (2.1-6.9); NEUTROPHILS % 53.9 % (38.7-80.0); PLATELET COUNT 296 x10e3/uL (140-360); RED BLOOD COUNT 3.94 x10e6/uL (3.6-5.1); RED CELL DISTRIBUTION WIDTH 16.3 % (11.7-14.4)
[2023-01-15] MEDS ORDERED: LACTATED RINGER'S 1,000 ML INJ ONE (10:00)
[2023-01-15 10:28] LABS: ALANINE AMINOTRANSFERASE 25 IU/L (0-55); ALBUMIN 2.8 g/dL (3.5-5.0); ALBUMIN/GLOBULIN RATIO 0.6 (0.8-2.0); ALKALINE PHOSPHATASE 209 IU/L (40-150); ANION GAP 22.5 mmol/L (8-16); CALCIUM 8.9 mg/dL (8.4-10.2); CARBON DIOXIDE 16 mmol/L (22-29); CHLORIDE 103 mmol/L (98-107); CREATININE, SERUM 0.61 mg/dL (0.57-1.11); GLUCOSE 63 mg/dL (74-118); POTASSIUM 3.5 mmol/L (3.5-5.1); SODIUM 138 mmol/L (136-145)
[2023-01-15 10:47] LABS: BLOOD UREA NITROGEN < 5 mg/dL (7-26); BUN/CREATININE RATIO 8 (6-25)
[2023-01-15 11:53] LABS: CLARITY,URINE CLEAR (CLEAR); COLOR,URINE YELLOW (YELLOW); KETONES,URINE 2+ (NEGATIVE); LEUKOCYTE ESTERASE ,URINE NEGATIVE (NEGATIVE); NITRITE,URINE NEGATIVE (NEGATIVE); PROTEIN,URINE DIPSTICK NEGATIVE (NEGATIVE); URINE UROBILINOGEN 0.2 mg/dL (0.2 - 1)
[2023-01-15] MEDS ORDERED: LACTATED RINGER'S 1,000 ML ONE (12:07)
[2023-01-15 12:21] LABS: BACTERIA,URINE FEW /HPF; EPITHELIAL CELLS,URINE FEW /LPF; RBC,URINE 0-5 /HPF (0-5); WBC,URINE (MAN) 0-5 /HPF (0-5)
[2023-01-15] MEDS ORDERED: LACTATED RINGER'S 1,000 ML IV ONE (12:30)
[2023-01-15 17:00] VITALS: O2SAT 100
== END 2023-01-15 17:15 | disposition home or self-care (01) ==
LOC: ER 09:30
DX: R42 Dizziness and giddiness (principal); R53.1 Weakness; M79.605 Pain in left leg; M79.604 Pain in right leg; G40.909 Epilepsy, unspecified, not intractable, without status epilepticus; Z20.822 Contact with and (suspected) exposure to COVID-19; Z98.84 Bariatric surgery status
CPT/HCPCS: 0223U; 36415; 80053; 81001; 83880; 84484; 85025; 93005; 99284; J7121

== ENCOUNTER 2023-01-26 16:18 | Emergency (ER) | payer SELFPAY ==
[~2023-01-26] VITALS: Ht 152.4 cm; Wt 63.5 kg
[2023-01-26] MEDS ORDERED: SODIUM CHLORIDE 0.9% 1000ML 1,000 ML IV STA (17:12)
[2023-01-26] MEDS ORDERED: DEXAMETHASONE SOD PHOS 10 MG/1 ML VIAL IV ONE (18:00)
[2023-01-26 18:02] LABS: BASOPHILS % 0.6 % (0.0-1.0); EOSINOPHILS # (AUTO) 0.1 (0.0-0.4); EOSINOPHILS % 1.2 % (0.0-6.0); HEMATOCRIT 37.7 % (34.2-44.1); HEMOGLOBIN 12.6 g/dL (12.0-16.0); LYMPHOCYTES # (AUTO) 1.9 (1.0-3.2); LYMPHOCYTES % 37.8 % (18.0-39.1); MEAN CORPUSCULAR HEMOGLOBIN 30.8 pg (28-32); MEAN CORPUSCULAR HGB CONC 33.4 g/dL (31-35); MEAN CORPUSCULAR VOLUME 92.2 fL (81-99); MONOCYTES # (AUTO) 0.6 (0.2-0.8); MONOCYTES % 12.3 % (4.4-11.3); NEUTROPHILS # (AUTO) 2.4 (2.1-6.9); NEUTROPHILS % 47.5 % (38.7-80.0); PLATELET COUNT 255 x10e3/uL (140-360); RED BLOOD COUNT 4.09 x10e6/uL (3.6-5.1); RED CELL DISTRIBUTION WIDTH 17.1 % (11.7-14.4)
[2023-01-26 18:22] LABS: ALANINE AMINOTRANSFERASE 24 IU/L (0-55); ALBUMIN 2.9 g/dL (3.5-5.0); ALBUMIN/GLOBULIN RATIO 0.7 (0.8-2.0); ALKALINE PHOSPHATASE 266 IU/L (40-150); ANION GAP 20.5 mmol/L (8-16); BLOOD UREA NITROGEN < 5 mg/dL (7-26); CALCIUM 9.4 mg/dL (8.4-10.2); CARBON DIOXIDE 21 mmol/L (22-29); CHLORIDE 98 mmol/L (98-107); GLUCOSE 87 mg/dL (74-118); POTASSIUM 3.5 mmol/L (3.5-5.1); SODIUM 136 mmol/L (136-145)
[2023-01-26 18:23] LABS: BUN/CREATININE RATIO 7 (6-25)
[2023-01-26 18:45] LABS: FREE THYROXINE INDEX 2.3595 (1.4-3.8); THYROID STIMULATING HORMONE 3.281 uIU/mL (0.350-4.940)
[2023-01-26] MEDS ORDERED: GABAPENTIN300 MG PO (19:23)
[2023-01-26] MEDS ORDERED: IBUPROFEN 600 MG TAB PO STA (20:55)
[2023-01-26 22:17] VITALS: BP 121/81; PULSE 84; RESP 18; TEMP 98.3; O2SAT 99
[2023-01-27] MEDS ORDERED: GABAPENTIN300 MG PO (17:10)
== END 2023-01-26 22:18 | disposition home or self-care (01) ==
LOC: ER 16:27
DX: R53.1 Weakness (principal); G62.9 Polyneuropathy, unspecified; R20.2 Paresthesia of skin; D64.9 Anemia, unspecified; G40.909 Epilepsy, unspecified, not intractable, without status epilepticus; Z98.84 Bariatric surgery status
CPT/HCPCS: 36415; 80053; 82607; 83735; 84436; 84443; 84479; 85025; 85651; 99284

== ENCOUNTER 2023-02-19 10:57 | Emergency (ER) | payer SELFPAY ==
[~2023-02-19] VITALS: Ht 152.4 cm; Wt 63.5 kg
[~2023-02-19 10:57] MED LIST changes: +GABAPENTIN300 MG PO
[2023-02-19 11:00] VITALS: O2SAT 100
== END 2023-02-19 12:20 | disposition home or self-care (01) ==
LOC: ER 11:07
DX: R53.1 Weakness (principal); R04.0 Epistaxis; D64.9 Anemia, unspecified; G40.909 Epilepsy, unspecified, not intractable, without status epilepticus; W19.XXXA Unspecified fall, initial encounter; Z98.84 Bariatric surgery status
CPT/HCPCS: 99284